=== PATIENT | female | born 1975 | race Two or more races ===

== ENCOUNTER 2024-08-11 20:02 | Emergency (ER) | payer BC ==
[~2024-08-11] VITALS: Ht 162.6 cm; Wt 74.8 kg
[2024-08-11 20:30] VITALS: BP 133/76; TEMP 99.2; O2SAT 98
== END 2024-08-11 20:46 | disposition home or self-care (01) ==
LOC: ER 20:06
DX: J06.9 Acute upper respiratory infection, unspecified (principal)